=== PATIENT | male | born 1940 | race Two or more races ===

== ENCOUNTER 2017-04-02 17:28 | Inpatient (IN) | payer OTHER ==
[2017-04-01 22:00] VITALS: BP 157/74
[~2017-04-02] VITALS: Ht 172.7 cm; Wt 91.6 kg
[2017-04-02] MEDS ORDERED: SODIUM CHLORIDE 0.9% 1000ML BAG (SEPSIS BOLUS) IV ONE (18:45)
[2017-04-02] MEDS ORDERED: ACETAMINOPHEN 325MG TABLET PO ONE (19:00)
[2017-04-02 19:18] LABS: CLARITY URINE CLOUDY (CLEAR); COLOR URINE YELLOW (YELLOW); GLUCOSE URINE 1+ (NEGATIVE); KETONES URINE NEGATIVE (NEGATIVE); LEUKOCYTE ESTERASE URINE 1+ (NEGATIVE); NITRITE URINE POSITIVE (NEGATIVE); OCCULT BLOOD URINE 1+ (NEGATIVE); PH URINE 5.5 (4.5-8.0); PROTEIN URINE 4+ (NEGATIVE); SPECIFIC GRAVITY URINE 1.025 (1.005-1.030); UROBILINOGEN URINE 0.2 E.U./dL (0.2-1.0)
[2017-04-02] MEDS ORDERED: VANCOMYCIN 1 G PREMIX 200 ML IV ONE (19:30)
[2017-04-02] MEDS ORDERED: PIPERACILLIN/TAZ 3.375G PREMIX 50 ML IV ONE (19:30)
[2017-04-02 19:42] LABS: BASOPHILS % 0.7 % (0.0-2.0); HEMATOCRIT. 38.4 % (42.0-52.0); HEMOGLOBIN. 12.4 g/dL (14.0-18.0); LYMPHOCYTES % 14.8 % (20.0-50.0); MEAN CORPUSCULAR HEMOGLOBIN 26.5 pg (28.0-32.0); MEAN CORPUSCULAR VOLUME 82.2 fL (80.0-94.0); MEAN PLATELET VOLUME 9.5 fl (7.4-10.4); NEUTROPHILS % 76.5 % (40.0-76.0); PLATELET 171 x1000/uL (130-400); RED BLOOD CELL COUNT 4.67 mill/uL (4.7-6.1); RED CELL DISTRIBUTION WIDTH 16.3 % (11.6-14.6)
[2017-04-02 19:43] LABS: CHLORIDE 107 mEq/L (98-107)
[2017-04-02 19:44] LABS: INR 1.8; PROTHROMBIN TIME 19.1 sec (9.4-11.6)
[2017-04-02 19:49] LABS: CARBON DIOXIDE 24 mEq/L (21-32)
[2017-04-02 19:55] LABS: TROPONIN I < 0.02 ng/mL (0.00-0.04)
[2017-04-02 22:00] VITALS: BP 157/70
[2017-04-02 23:00] VITALS: BP 150/74
[2017-04-02] MEDS ORDERED: METF500T4 PO (23:16)
[2017-04-02] MEDS ORDERED: ATOR20TA65 PO (23:16)
[2017-04-02] MEDS ORDERED: GABA100C PO (23:16)
[2017-04-02] MEDS ORDERED: SITA50TA3 PO (23:16)
[2017-04-02] MEDS ORDERED: ASPI-1159 PO (23:16)
[2017-04-02] MEDS ORDERED: TAMS0.4C31 PO (23:16)
[2017-04-02] MEDS ORDERED: INSU3INS6 SUBCUT (23:16)
[2017-04-02] MEDS ORDERED: [UNRECOGNIZED DRUG - CODE] MC (23:16)
[2017-04-02] MEDS ORDERED: WARF2TAB55 PO (23:16)
[2017-04-02] MEDS ORDERED: ENZA40CA PO (23:16)
[2017-04-02] MEDS ORDERED: METO100T9 PO (23:16)
[2017-04-02] MEDS ORDERED: OMEP20CA10 PO (23:16)
[2017-04-02] MEDS ORDERED: DIGO250T4 PO (23:16)
[2017-04-02] MEDS ORDERED: LOSA100T3 PO (23:16)
[2017-04-02] MEDS ORDERED: DEXTROSE 50% WATER 50ML SYRINGE IV PRN (23:30)
[2017-04-03] VITALS (12 sets, daily range): BP systolic 138–162; BP diastolic 67–93
[2017-04-03] MEDS ORDERED: ACETAMINOPHEN 650MG/20.3ML UDC GT PRN (00:15)
[2017-04-03] MEDS ORDERED: ACETAMINOPHEN 650MG SUPP PR PRN (00:15)
[2017-04-03] MEDS ORDERED: IPRATROPIUM/ALBUTEROL 0.5-3(2.5)MG/3ML NEB INH PRN (00:15)
[2017-04-03] MEDS ORDERED: CLONIDINE 0.1MG TABLET PO PRN (00:15)
[2017-04-03] MEDS ORDERED: MAGNESIUM/ALUMINUM HYDROXIDE/SIMETHICONE 30ML UDC PO PRN (00:15)
[2017-04-03] MEDS ORDERED: DIPHENHYDRAMINE 50MG/ML VIAL IV PRN (00:15)
[2017-04-03] MEDS: DIGOXIN 250MCG TABLET PO SCH ×3 (00:15→08:36)
[2017-04-03] MEDS: ATORVASTATIN CALCIUM 20MG TABLET PO SCH ×3 (00:15→21:11)
[2017-04-03] MEDS ORDERED: GUAIFENESIN 200MG/10ML SUGAR FREE UDC PO PRN (00:15)
[2017-04-03] MEDS: LOSARTAN POTASSIUM 100 MG TABLET PO SCH ×3 (00:15→08:36)
[2017-04-03] MEDS: ASPIRIN 81MG EC TABLET PO SCH ×3 (00:15→08:36)
[2017-04-03] MEDS: GABAPENTIN 100MG CAPSULE PO SCH ×5 (00:15→17:24)
[2017-04-03] MEDS ORDERED: HYDROCODONE/ACETAMINOPHEN 5/325MG TABLET PO PRN (00:15)
[2017-04-03] MEDS ORDERED: ONDANSETRON HCL 4MG/2ML VIAL IV PRN (00:15)
[2017-04-03] MEDS ORDERED: WARFARIN SODIUM 2MG TABLET PO SCH ×2 (00:15→18:00)
[2017-04-03] MEDS ORDERED: ACETAMINOPHEN 325MG TABLET PO PRN (00:15)
[2017-04-03] MEDS: TAMSULOSIN HCL 0.4MG SR CAPSULE PO SCH ×3 (00:15→08:35)
[2017-04-03] MEDS ORDERED: DOCUSATE SODIUM 100MG CAPSULE PO PRN (00:15)
[2017-04-03] MEDS ORDERED: NA PHOS,M-B/NA PHOS,DI-BA ENEMA 118ML PR PRN (00:15)
[2017-04-03] MEDS ORDERED: DEXTROSE 50% WATER 50ML SYRINGE IV PRN (00:30)
[2017-04-03] MEDS: WARFARIN SODIUM 2MG TABLET PO SCH ×2 (01:12→01:25)
[2017-04-03] MEDS: LEVOFLOXACIN 500MG PREMIX 100 ML IV SCH (01:12)
[2017-04-03 05:39] LABS: CARBON DIOXIDE 29 mEq/L (21-32); CHLORIDE 110 mEq/L (98-107); CREATINE KINASE 56 IU/L (39-308)
[2017-04-03 05:41] LABS: TROPONIN I 0.02 ng/mL (0.00-0.04)
[2017-04-03] MEDS: SODIUM CHLORIDE 0.9% INJ 3ML FLUSH IVF SCH ×3 (05:46→21:25)
[2017-04-03 06:19] LABS: BASOPHILS % 0.5 % (0.0-2.0); EOSINOPHILS % 0.2 % (0.0-5.0); HEMATOCRIT. 35.8 % (42.0-52.0); HEMOGLOBIN. 11.5 g/dL (14.0-18.0); LYMPHOCYTES % 19.4 % (20.0-50.0); MEAN CORPUSCULAR HEMOGLOBIN 26.7 pg (28.0-32.0); MONOCYTES % 8.6 % (2.0-8.0); NEUTROPHILS % 71.3 % (40.0-76.0); PLATELET 154 x1000/uL (130-400); RED BLOOD CELL COUNT 4.31 mill/uL (4.7-6.1); RED CELL DISTRIBUTION WIDTH 16.6 % (11.6-14.6)
[2017-04-03] MEDS: OMEPRAZOLE 20MG CAPSULE EXTENDED RELEASE PO SCH ×2 (06:42→17:24)
[2017-04-03] MEDS ORDERED: BLOOD SUGAR DIAGNOSTIC STRIP TEST SCH (07:30)
[2017-04-03] MEDS: BLOOD SUGAR DIAGNOSTIC STRIP TEST SCH ×4 (07:35→21:11)
[2017-04-03] MEDS ORDERED: INSULIN LISPRO 100 UNITS/ML SUBCUT SCH (08:00)
[2017-04-03] MEDS: ENOXAPARIN 40MG/0.4ML SYR SUBCUT SCH (08:36)
[2017-04-03] MEDS: METFORMIN HCL 500MG TABLET PO SCH ×2 (08:36→17:24)
[2017-04-03] MEDS: INSULIN LISPRO 100 UNITS/ML SUBCUT SCH ×4 (08:37→21:12)
[2017-04-03 15:55] LABS: CREATINE KINASE 53 IU/L (39-308); TROPONIN I < 0.02 ng/mL (0.00-0.04)
[2017-04-03 18:45] LABS: CLARITY URINE CLEAR (CLEAR); COLOR URINE YELLOW (YELLOW); GLUCOSE URINE 2+ (NEGATIVE); KETONES URINE NEGATIVE (NEGATIVE); LEUKOCYTE ESTERASE URINE TRACE (NEGATIVE); NITRITE URINE NEGATIVE (NEGATIVE); OCCULT BLOOD URINE NEGATIVE (NEGATIVE); PH URINE 5.5 (4.5-8.0); PROTEIN URINE 3+ (NEGATIVE); SPECIFIC GRAVITY URINE 1.021 (1.005-1.030); UROBILINOGEN URINE 0.2 E.U./dL (0.2-1.0)
[2017-04-03 19:09] LABS: *AMPHETAMINES SCREEN URINE NEGATIVE (NEGATIVE); *BARBITURATES SCREEN URINE NEGATIVE (NEGATIVE); *BENZODIAZEPINES SCREEN URINE NEGATIVE (NEGATIVE); *COCAINE SCREEN URINE NEGATIVE (NEGATIVE); CANNABINOID URINE SCREEN NEGATIVE (NEGATIVE); METHADONE URINE SCREEN NEGATIVE (NEGATIVE); OPIATES URINE SCREEN NEGATIVE (NEGATIVE); PHENCYCLIDINE URINE SCREEN NEGATIVE (NEGATIVE)
[2017-04-04] VITALS (9 sets, daily range): BP systolic 122–157; BP diastolic 56–88
[2017-04-04] MEDS: LEVOFLOXACIN 500MG PREMIX 100 ML IV SCH (02:06)
[2017-04-04 05:13] LABS: INR 1.8; PROTHROMBIN TIME 18.5 sec (9.4-11.6)
[2017-04-04 05:18] LABS: BASOPHILS % 0.6 % (0.0-2.0); EOSINOPHILS % 0.5 % (0.0-5.0); HEMATOCRIT. 36.6 % (42.0-52.0); HEMOGLOBIN. 11.6 g/dL (14.0-18.0); LYMPHOCYTES % 24.2 % (20.0-50.0); MEAN CORPUSCULAR HEMOGLOBIN 26.7 pg (28.0-32.0); MEAN CORPUSCULAR VOLUME 84.1 fL (80.0-94.0); MEAN PLATELET VOLUME 10.2 fl (7.4-10.4); MONOCYTES % 10.7 % (2.0-8.0); PLATELET 158 x1000/uL (130-400); RED BLOOD CELL COUNT 4.36 mill/uL (4.7-6.1); RED CELL DISTRIBUTION WIDTH 16.9 % (11.6-14.6)
[2017-04-04 06:17] LABS: CHLORIDE 108 mEq/L (98-107)
[2017-04-04 06:25] LABS: CARBON DIOXIDE 28 mEq/L (21-32); HDL CHOLESTEROL 51 mg/dL (40-59); LDL CHOLESTEROL 71 mg/dL (5-100)
[2017-04-04] MEDS: BLOOD SUGAR DIAGNOSTIC STRIP TEST SCH ×2 (07:49→12:17)
[2017-04-04] MEDS: OMEPRAZOLE 20MG CAPSULE EXTENDED RELEASE PO SCH (08:19)
[2017-04-04] MEDS: INSULIN LISPRO 100 UNITS/ML SUBCUT SCH ×2 (08:20→13:14)
[2017-04-04] MEDS: METFORMIN HCL 500MG TABLET PO SCH (08:20)
[2017-04-04] MEDS: TAMSULOSIN HCL 0.4MG SR CAPSULE PO SCH (09:33)
[2017-04-04] MEDS: ASPIRIN 81MG EC TABLET PO SCH (09:33)
[2017-04-04] MEDS: GABAPENTIN 100MG CAPSULE PO SCH ×2 (09:33→13:14)
[2017-04-04] MEDS: LOSARTAN POTASSIUM 100 MG TABLET PO SCH (09:33)
[2017-04-04] MEDS: DIGOXIN 250MCG TABLET PO SCH (09:33)
[2017-04-04] MEDS: ENOXAPARIN 40MG/0.4ML SYR SUBCUT SCH (09:34)
[2017-04-04] MEDS ORDERED: LIDOCAINE HCL 1% 20ML VIAL (Pyxis) INJ ONE (14:01)
[2017-04-04] MEDS ORDERED: SODIUM BICARBONATE 4% (2.4MEQ) 5ML VIAL IV ONE (14:01)
== END 2017-04-04 17:08 | disposition home health service (06) | DRG 871 ==
LOC: ER 17:51 → 5EST 20:19 → EDBEDREQTM 20:25 → EDBEDREQ 20:25 → ENRESERV 21:06
PROVIDERS: ADMIT Internal Medicine; ATTEND Family Medicine
PROC: 02HV33Z Insertion of Infusion Device into Superior Vena Cava, Percutaneous Approach (ICD-10-PCS; principal; 2017-04-04)
PROC: B548ZZA Ultrasonography of Superior Vena Cava, Guidance (ICD-10-PCS; 2017-04-04)
DX: A41.9 Sepsis, unspecified organism (principal); E43 Unspecified severe protein-calorie malnutrition; G93.41 Metabolic encephalopathy; E11.65 Type 2 diabetes mellitus with hyperglycemia; E86.0 Dehydration; I48.91 Unspecified atrial fibrillation; N39.0 Urinary tract infection, site not specified; D63.8 Anemia in other chronic diseases classified elsewhere; I10 Essential (primary) hypertension; I25.10 Atherosclerotic heart disease of native coronary artery without angina pectoris; T45.515A Adverse effect of anticoagulants, initial encounter; Z79.01 Long term (current) use of anticoagulants; Z87.891 Personal history of nicotine dependence; Z68.30 Body mass index [BMI] 30.0-30.9, adult
CPT/HCPCS: 36415; 36569; 70450; 71010; 76937; 77001; 80048; 80053; 80061; 80305; 81001; 82550; 82962; 83605; 83690; 83880; 84484; 85025; 85610; 87040; 87077; 87086; 87186; 93005; 96361; 96365; 96375; 99291; C1725; J1650; J1815; J1956; J2543; J3370; J3490; J7030; J7050

== ENCOUNTER 2017-04-10 23:44 | Inpatient (IN) | payer OTHER ==
[~2017-04-10] VITALS: Ht 167.6 cm; Wt 93.0 kg
[~2017-04-10 23:44] MED LIST: ASPI-1159 PO; ATOR20TA65 PO; DIGO250T4 PO; ENZA40CA PO; GABA100C PO; INSU3INS6 SUBCUT; LOSA100T3 PO; METF500T4 PO; METO100T9 PO; OMEP20CA10 PO; SITA50TA3 PO; TAMS0.4C31 PO; WARF2TAB55 PO; [UNRECOGNIZED DRUG - CODE] MC
[2017-04-11] MEDS ORDERED: SODIUM CHLORIDE 0.9% 1,000 ML IV ONE (01:21)
[2017-04-11 01:52] LABS: BASOPHILS % 0.7 % (0.0-2.0); HEMATOCRIT. 41.5 % (42.0-52.0); HEMOGLOBIN. 13.3 g/dL (14.0-18.0); LYMPHOCYTES % 15.1 % (20.0-50.0); MEAN CORPUSCULAR HEMOGLOBIN 26.4 pg (28.0-32.0); MEAN CORPUSCULAR VOLUME 82.2 fL (80.0-94.0); MEAN PLATELET VOLUME 9.4 fl (7.4-10.4); MONOCYTES % 8.5 % (2.0-8.0); NEUTROPHILS % 75.7 % (40.0-76.0); PLATELET 261 x1000/uL (130-400); RED BLOOD CELL COUNT 5.05 mill/uL (4.7-6.1); RED CELL DISTRIBUTION WIDTH 16.3 % (11.6-14.6)
[2017-04-11 01:57] LABS: INR 1.8; PROTHROMBIN TIME 18.5 sec (9.4-11.6)
[2017-04-11 02:06] LABS: CARBON DIOXIDE 30 mEq/L (21-32); CHLORIDE 101 mEq/L (98-107); TROPONIN I < 0.02 ng/mL (0.00-0.04)
[2017-04-11 03:36] LABS: CLARITY URINE CLOUDY (CLEAR); COLOR URINE YELLOW (YELLOW); GLUCOSE URINE TRACE (NEGATIVE); KETONES URINE NEGATIVE (NEGATIVE); LEUKOCYTE ESTERASE URINE NEGATIVE (NEGATIVE); NITRITE URINE NEGATIVE (NEGATIVE); OCCULT BLOOD URINE TRACE (NEGATIVE); PH URINE 6.5 (4.5-8.0); PROTEIN URINE 4+ (NEGATIVE); SPECIFIC GRAVITY URINE 1.024 (1.005-1.030)
[2017-04-11 09:00] VITALS: BP 163/77
[2017-04-11 09:44] VITALS: BP 162/82
[2017-04-11] MEDS ORDERED: DEXTROSE 50% WATER 50ML SYRINGE IV PRN (11:00)
[2017-04-11] MEDS ORDERED: CLONIDINE 0.1MG TABLET PO PRN (11:00)
[2017-04-11 12:00] VITALS: BP 173/90
[2017-04-11] MEDS: BLOOD SUGAR DIAGNOSTIC STRIP TEST SCH ×3 (12:28→20:39)
[2017-04-11] MEDS: INSULIN LISPRO 100 UNITS/ML SUBCUT SCH ×3 (12:28→20:35)
[2017-04-11] MEDS: GABAPENTIN 100MG CAPSULE PO SCH (12:57)
[2017-04-11] MEDS: LOSARTAN POTASSIUM 100 MG TABLET PO SCH (12:57)
[2017-04-11] MEDS: LINAGLIPTIN 5MG TABLET PO SCH (12:58)
[2017-04-11] MEDS: TAMSULOSIN HCL 0.4MG SR CAPSULE PO SCH (12:58)
[2017-04-11] MEDS: METOPROLOL TARTRATE 100MG TABLET PO SCH ×2 (12:58→20:32)
[2017-04-11] MEDS: LEVOFLOXACIN 500MG PREMIX 100 ML IV SCH (12:58)
[2017-04-11] MEDS: ASPIRIN 81MG EC TABLET PO SCH (12:58)
[2017-04-11] MEDS: SODIUM CHLORIDE 0.9% 1,000 ML IV SCH (13:02)
[2017-04-11] MEDS: MEROPENEM 500 MG in SODIUM CHLORIDE 0.9% 50 ML IV SCH ×2 (15:16→20:33)
[2017-04-11 16:46] VITALS: BP 144/79
[2017-04-11] MEDS ORDERED: METOPROLOL SUCCINATE 100 MG PO SCH (17:00)
[2017-04-11] MEDS ORDERED: LORAZEPAM 2MG/ML CPJ IV PRN (17:15)
[2017-04-11] MEDS: OMEPRAZOLE 20MG CAPSULE EXTENDED RELEASE PO SCH (17:16)
[2017-04-11] MEDS: DIGOXIN 250MCG TABLET PO SCH (17:51)
[2017-04-11] MEDS ORDERED: WARFARIN SODIUM 4MG TABLET PO SCH (18:00)
[2017-04-11] MEDS ORDERED: WARFARIN SODIUM 2MG TABLET PO SCH (18:00)
[2017-04-11 19:43] VITALS: BP 193/91
[2017-04-11] MEDS: ACETAMINOPHEN 650MG/20.3ML UDC PO PRN (20:05)
[2017-04-11] MEDS: ATORVASTATIN CALCIUM 20MG TABLET PO SCH (20:32)
[2017-04-11] MEDS: INSULIN DETEMIR UD 100 UNITS/ML SYR SUBCUT SCH (22:36)
[2017-04-12] MEDS: SODIUM CHLORIDE 0.9% 1,000 ML IV SCH ×2 (04:04→21:24)
[2017-04-12 06:45] LABS: D-DIMER 1.69 mg/L FEU (<0.50); INR 2.7; PROTHROMBIN TIME 28.1 sec (9.4-11.6)
[2017-04-12 07:03] LABS: BASOPHILS % 0.5 % (0.0-2.0); HEMATOCRIT. 36.4 % (42.0-52.0); HEMOGLOBIN. 11.5 g/dL (14.0-18.0); LYMPHOCYTES % 19.7 % (20.0-50.0); MEAN CORPUSCULAR HEMOGLOBIN 26.4 pg (28.0-32.0); MEAN CORPUSCULAR VOLUME 83.6 fL (80.0-94.0); MEAN PLATELET VOLUME 9.8 fl (7.4-10.4); NEUTROPHILS % 68.8 % (40.0-76.0); PLATELET 225 x1000/uL (130-400); RED BLOOD CELL COUNT 4.36 mill/uL (4.7-6.1); RED CELL DISTRIBUTION WIDTH 16.3 % (11.6-14.6)
[2017-04-12 07:05] VITALS: BP 145/85
[2017-04-12 07:26] LABS: CHLORIDE 107 mEq/L (98-107)
[2017-04-12] MEDS: OMEPRAZOLE 20MG CAPSULE EXTENDED RELEASE PO SCH ×2 (07:28→17:27)
[2017-04-12] MEDS: MEROPENEM 500 MG in SODIUM CHLORIDE 0.9% 50 ML IV SCH ×3 (07:28→21:44)
[2017-04-12] MEDS: BLOOD SUGAR DIAGNOSTIC STRIP TEST SCH ×4 (07:30→20:58)
[2017-04-12 07:43] LABS: CARBON DIOXIDE 28 mEq/L (21-32); HDL CHOLESTEROL 45 mg/dL (40-59); LDL CHOLESTEROL 48 mg/dL (5-100); TROPONIN I < 0.02 ng/mL (0.00-0.04)
[2017-04-12] MEDS: INSULIN LISPRO 100 UNITS/ML SUBCUT SCH ×4 (07:50→21:00)
[2017-04-12 08:00] VITALS: BP 157/81
[2017-04-12] MEDS: ASPIRIN 81MG EC TABLET PO SCH (08:56)
[2017-04-12] MEDS: LOSARTAN POTASSIUM 100 MG TABLET PO SCH (08:56)
[2017-04-12] MEDS: TAMSULOSIN HCL 0.4MG SR CAPSULE PO SCH (08:56)
[2017-04-12] MEDS: METOPROLOL TARTRATE 100MG TABLET PO SCH ×2 (08:57→20:58)
[2017-04-12] MEDS: GABAPENTIN 100MG CAPSULE PO SCH (08:57)
[2017-04-12] MEDS: LINAGLIPTIN 5MG TABLET PO SCH (08:58)
[2017-04-12] MEDS ORDERED: MEDICATION NOT ON FORMULARY EA (Sitagliptin Phosphate (Januvia) 50 MG) PO SCH (09:00)
[2017-04-12 12:00] VITALS: BP 152/84
[2017-04-12] MEDS: LEVOFLOXACIN 500MG PREMIX 100 ML IV SCH (12:06)
[2017-04-12 16:00] VITALS: BP 137/66
[2017-04-12] MEDS: DIGOXIN 250MCG TABLET PO SCH (17:27)
[2017-04-12 18:36] LABS: VITAMIN B12 SERUM 275 pg/mL (211-911)
[2017-04-12 20:00] VITALS: BP 170/82
[2017-04-12] MEDS: ATORVASTATIN CALCIUM 20MG TABLET PO SCH (20:58)
[2017-04-12] MEDS: INSULIN DETEMIR UD 100 UNITS/ML SYR SUBCUT SCH (22:00)
[2017-04-13] VITALS: BP 156/85
[2017-04-13 04:00] VITALS: BP 113/80
[2017-04-13 06:21] LABS: BASOPHILS % 0.3 % (0.0-2.0); EOSINOPHILS % 0.1 % (0.0-5.0); HEMATOCRIT. 35.7 % (42.0-52.0); HEMOGLOBIN. 11.3 g/dL (14.0-18.0); LYMPHOCYTES % 18.6 % (20.0-50.0); MEAN CORPUSCULAR HEMOGLOBIN 26.5 pg (28.0-32.0); MEAN CORPUSCULAR VOLUME 83.4 fL (80.0-94.0); MEAN PLATELET VOLUME 9.6 fl (7.4-10.4); MONOCYTES % 7.7 % (2.0-8.0); NEUTROPHILS % 73.3 % (40.0-76.0); PLATELET 262 x1000/uL (130-400); RED BLOOD CELL COUNT 4.28 mill/uL (4.7-6.1); RED CELL DISTRIBUTION WIDTH 16.1 % (11.6-14.6)
[2017-04-13 06:29] LABS: PROTHROMBIN TIME 45.4 sec (9.4-11.6)
[2017-04-13] MEDS: MEROPENEM 500 MG in SODIUM CHLORIDE 0.9% 50 ML IV SCH ×3 (06:34→22:09)
[2017-04-13] MEDS: ACETAMINOPHEN 650MG/20.3ML UDC PO PRN (06:34)
[2017-04-13] MEDS: OMEPRAZOLE 20MG CAPSULE EXTENDED RELEASE PO SCH ×2 (06:34→18:24)
[2017-04-13] MEDS: BLOOD SUGAR DIAGNOSTIC STRIP TEST SCH ×4 (06:35→21:12)
[2017-04-13 07:13] LABS: CARBON DIOXIDE 27 mEq/L (21-32); CHLORIDE 106 mEq/L (98-107); TROPONIN I < 0.02 ng/mL (0.00-0.04)
[2017-04-13] MEDS: INSULIN LISPRO 100 UNITS/ML SUBCUT SCH ×4 (07:50→21:00)
[2017-04-13 07:52] LABS: INR 4.3
[2017-04-13 08:00] VITALS: BP 168/78
[2017-04-13] MEDS: GABAPENTIN 100MG CAPSULE PO SCH (09:01)
[2017-04-13] MEDS: ASPIRIN 81MG EC TABLET PO SCH (09:01)
[2017-04-13] MEDS: LINAGLIPTIN 5MG TABLET PO SCH (09:01)
[2017-04-13] MEDS: METOPROLOL TARTRATE 100MG TABLET PO SCH ×2 (09:01→21:12)
[2017-04-13] MEDS: TAMSULOSIN HCL 0.4MG SR CAPSULE PO SCH (09:01)
[2017-04-13] MEDS: LOSARTAN POTASSIUM 100 MG TABLET PO SCH (09:01)
[2017-04-13 12:00] VITALS: BP 130/65
[2017-04-13] MEDS: SODIUM CHLORIDE 0.9% 1,000 ML IV SCH (13:19)
[2017-04-13 16:00] VITALS: BP 126/68
[2017-04-13] MEDS: DIGOXIN 250MCG TABLET PO SCH (18:24)
[2017-04-13 20:00] VITALS: BP 172/90
[2017-04-13] MEDS: ATORVASTATIN CALCIUM 20MG TABLET PO SCH (21:12)
[2017-04-13] MEDS: INSULIN DETEMIR UD 100 UNITS/ML SYR SUBCUT SCH (22:00)
[2017-04-14] VITALS (7 sets, daily range): BP systolic 133–176; BP diastolic 61–99
[2017-04-14 06:26] LABS: INR 2.5; PROTHROMBIN TIME 26.2 sec (9.4-11.6)
[2017-04-14] MEDS: BLOOD SUGAR DIAGNOSTIC STRIP TEST SCH ×4 (06:36→21:37)
[2017-04-14] MEDS: SODIUM CHLORIDE 0.9% 1,000 ML IV SCH (06:36)
[2017-04-14] MEDS: MEROPENEM 500 MG in SODIUM CHLORIDE 0.9% 50 ML IV SCH ×2 (06:36→13:33)
[2017-04-14] MEDS: OMEPRAZOLE 20MG CAPSULE EXTENDED RELEASE PO SCH ×2 (07:32→18:22)
[2017-04-14] MEDS: ACETAMINOPHEN 650MG/20.3ML UDC PO PRN ×2 (07:32→20:02)
[2017-04-14] MEDS: INSULIN LISPRO 100 UNITS/ML SUBCUT SCH ×4 (09:09→21:00)
[2017-04-14] MEDS: ASPIRIN 81MG EC TABLET PO SCH (09:10)
[2017-04-14] MEDS: TAMSULOSIN HCL 0.4MG SR CAPSULE PO SCH (09:11)
[2017-04-14] MEDS: LOSARTAN POTASSIUM 100 MG TABLET PO SCH (09:11)
[2017-04-14] MEDS: LINAGLIPTIN 5MG TABLET PO SCH (09:11)
[2017-04-14] MEDS: METOPROLOL TARTRATE 100MG TABLET PO SCH ×2 (09:11→21:37)
[2017-04-14] MEDS: GABAPENTIN 100MG CAPSULE PO SCH (09:11)
[2017-04-14] MEDS ORDERED: CLONIDINE 0.2MG TABLET PO PRN (11:00)
[2017-04-14] MEDS ORDERED: CLONIDINE 0.1MG TABLET PO PRN (11:15)
[2017-04-14] MEDS: HYDRALAZINE HCL 50MG TABLET PO SCH ×2 (13:17→21:37)
[2017-04-14 14:32] LABS: CLARITY URINE CLEAR (CLEAR); COLOR URINE YELLOW (YELLOW); GLUCOSE URINE TRACE (NEGATIVE); KETONES URINE NEGATIVE (NEGATIVE); LEUKOCYTE ESTERASE URINE NEGATIVE (NEGATIVE); NITRITE URINE NEGATIVE (NEGATIVE); OCCULT BLOOD URINE NEGATIVE (NEGATIVE); PROTEIN URINE 3+ (NEGATIVE)
[2017-04-14] MEDS ORDERED: WARFARIN SODIUM 1MG TABLET PO NR (18:00)
[2017-04-14] MEDS: DIGOXIN 250MCG TABLET PO SCH (18:22)
[2017-04-14] MEDS: ATORVASTATIN CALCIUM 20MG TABLET PO SCH (21:37)
[2017-04-14] MEDS: INSULIN DETEMIR UD 100 UNITS/ML SYR SUBCUT SCH (21:42)
== END 2017-04-14 22:05 | DRG 871 ==
LOC: ER 23:45 → 6WST 04-11 05:58 → EDBEDREQ 04-11 06:26 → ENRESERV 04-11 07:07
PROVIDERS: ADMIT Internal Medicine; ATTEND Internal Medicine
DX: A41.9 Sepsis, unspecified organism (principal); G92 Toxic encephalopathy; E11.42 Type 2 diabetes mellitus with diabetic polyneuropathy; I11.9 Hypertensive heart disease without heart failure; N39.0 Urinary tract infection, site not specified; L97.429 Non-pressure chronic ulcer of left heel and midfoot with unspecified severity; R62.7 Adult failure to thrive; K21.9 Gastro-esophageal reflux disease without esophagitis; E11.621 Type 2 diabetes mellitus with foot ulcer; E78.00 Pure hypercholesterolemia, unspecified; E78.5 Hyperlipidemia, unspecified; I48.2 Chronic atrial fibrillation; N40.0 Benign prostatic hyperplasia without lower urinary tract symptoms; Z79.01 Long term (current) use of anticoagulants; Z79.82 Long term (current) use of aspirin; Z85.46 Personal history of malignant neoplasm of prostate; Z87.440 Personal history of urinary (tract) infections; Z87.891 Personal history of nicotine dependence; Z98.61 Coronary angioplasty status; Z79.899 Other long term (current) drug therapy
CPT/HCPCS: 36415; 70450; 70551; 71010; 80048; 80053; 80061; 80162; 81001; 82607; 82962; 83605; 83735; 83880; 84153; 84443; 84484; 85025; 85379; 85610; 85651; 86140; 87040; 87086; 87106; 93005; 93306; 93970; 96360; 96361; 97162; 99291; A6261; J1815; J1956; J2060; J2185; J7030

== ENCOUNTER 2017-05-04 23:43 | Inpatient (IN) | payer OTHER ==
[~2017-05-04] VITALS: Ht 167.6 cm; Wt 79.4 kg
[~2017-05-04 23:43] MED LIST changes: -ENZA40CA PO; -[UNRECOGNIZED DRUG - CODE] MC
[2017-05-05] MEDS ORDERED: SODIUM CHLORIDE 0.9% 1,000 ML IV ONE (00:06)
[2017-05-05 00:36] LABS: BASOPHILS % 0.4 % (0.0-2.0); EOSINOPHILS % 0.1 % (0.0-5.0); HEMATOCRIT. 37.1 % (42.0-52.0); HEMOGLOBIN. 11.5 g/dL (14.0-18.0); LYMPHOCYTES % 13.5 % (20.0-50.0); MEAN CORPUSCULAR HEMOGLOBIN 26.1 pg (28.0-32.0); MONOCYTES % 9.3 % (2.0-8.0); NEUTROPHILS % 76.7 % (40.0-76.0); PLATELET 318 x1000/uL (130-400); RED BLOOD CELL COUNT 4.41 mill/uL (4.7-6.1); RED CELL DISTRIBUTION WIDTH 16.8 % (11.6-14.6)
[2017-05-05 00:57] LABS: CARBON DIOXIDE 31 mEq/L (21-32); CHLORIDE 104 mEq/L (98-107); ETHANOL BLOOD < 10 mg/dL; TROPONIN I 0.06 ng/mL (0.00-0.04)
[2017-05-05 01:00] LABS: PARTIAL THROMBOPLASTIN TIME 74.2 sec (23.4-31.0)
[2017-05-05 01:08] LABS: PROTHROMBIN TIME > 100.0 sec (9.4-11.6)
[2017-05-05 01:09] LABS: INR > 10.0
[2017-05-05 01:10] LABS: DIGOXIN 2.3 ng/mL (0.9-2.0)
[2017-05-05] MEDS ORDERED: PHYTONADIONE 10MG/ML AMP IM NR (01:15)
[2017-05-05 09:00] VITALS: BP 151/70
[2017-05-05 10:15] VITALS: BP 151/70
[2017-05-05] MEDS ORDERED: GUAIFENESIN 200MG/10ML SUGAR FREE UDC PO PRN (11:00)
[2017-05-05] MEDS ORDERED: DOCUSATE SODIUM 100MG CAPSULE PO PRN (11:00)
[2017-05-05] MEDS ORDERED: ACETAMINOPHEN 325MG TABLET PO PRN (11:00)
[2017-05-05] MEDS ORDERED: ONDANSETRON HCL 4MG/2ML VIAL IV PRN (11:00)
[2017-05-05 12:00] VITALS: BP 157/75
[2017-05-05] MEDS ORDERED: DEXTROSE 50% WATER 50ML SYRINGE IV PRN (12:00)
[2017-05-05] MEDS: BLOOD SUGAR DIAGNOSTIC STRIP TEST SCH ×3 (12:38→20:29)
[2017-05-05] MEDS: INSULIN LISPRO 100 UNITS/ML SUBCUT SCH ×3 (12:48→20:42)
[2017-05-05 16:00] VITALS: BP 160/73
[2017-05-05] MEDS: HYDROCODONE/ACETAMINOPHEN 5/325MG TABLET PO PRN (17:00)
[2017-05-05 20:00] VITALS: BP 164/80
[2017-05-05] MEDS: METOPROLOL TARTRATE 50MG TABLET PO SCH (20:40)
[2017-05-06] VITALS: BP 176/71
[2017-05-06] MEDS: CLONIDINE 0.1MG TABLET PO PRN ×4 (00:20→17:04)
[2017-05-06 04:00] VITALS: BP 190/78
[2017-05-06] MEDS: HYDROCODONE/ACETAMINOPHEN 5/325MG TABLET PO PRN (04:42)
[2017-05-06] MEDS: BLOOD SUGAR DIAGNOSTIC STRIP TEST SCH ×4 (06:06→21:56)
[2017-05-06] MEDS: INSULIN LISPRO 100 UNITS/ML SUBCUT SCH ×4 (06:53→21:00)
[2017-05-06 06:55] LABS: INR 1.4; PROTHROMBIN TIME 14.4 sec (9.4-11.6)
[2017-05-06 07:31] LABS: CLARITY URINE CLEAR (CLEAR); COLOR URINE YELLOW (YELLOW); GLUCOSE URINE NEGATIVE (NEGATIVE); KETONES URINE NEGATIVE (NEGATIVE); LEUKOCYTE ESTERASE URINE 1+ (NEGATIVE); NITRITE URINE NEGATIVE (NEGATIVE); OCCULT BLOOD URINE 1+ (NEGATIVE); PH URINE 5.5 (4.5-8.0); PROTEIN URINE 2+ (NEGATIVE); SPECIFIC GRAVITY URINE 1.021 (1.005-1.030)
[2017-05-06 07:31] LABS: BASOPHILS % 0.6 % (0.0-2.0); EOSINOPHILS % 0.3 % (0.0-5.0); HEMATOCRIT. 34.8 % (42.0-52.0); HEMOGLOBIN. 10.8 g/dL (14.0-18.0); LYMPHOCYTES % 14.1 % (20.0-50.0); MEAN CORPUSCULAR HEMOGLOBIN 26.1 pg (28.0-32.0); MEAN CORPUSCULAR VOLUME 83.8 fL (80.0-94.0); MEAN PLATELET VOLUME 9.5 fl (7.4-10.4); MONOCYTES % 9.4 % (2.0-8.0); NEUTROPHILS % 75.6 % (40.0-76.0); PLATELET 312 x1000/uL (130-400); RED BLOOD CELL COUNT 4.15 mill/uL (4.7-6.1); RED CELL DISTRIBUTION WIDTH 16.6 % (11.6-14.6)
[2017-05-06 07:38] LABS: CARBON DIOXIDE 32 mEq/L (21-32); CHLORIDE 105 mEq/L (98-107); HDL CHOLESTEROL 31 mg/dL (40-59); LDL CHOLESTEROL 62 mg/dL (5-100)
[2017-05-06 07:59] LABS: *AMPHETAMINES SCREEN URINE NEGATIVE (NEGATIVE); *BARBITURATES SCREEN URINE NEGATIVE (NEGATIVE); *BENZODIAZEPINES SCREEN URINE NEGATIVE (NEGATIVE); *COCAINE SCREEN URINE NEGATIVE (NEGATIVE); CANNABINOID URINE SCREEN NEGATIVE (NEGATIVE); METHADONE URINE SCREEN NEGATIVE (NEGATIVE); OPIATES URINE SCREEN PRESUMTIVE POSITIVE (NEGATIVE); PHENCYCLIDINE URINE SCREEN NEGATIVE (NEGATIVE)
[2017-05-06 08:00] VITALS: BP 141/74
[2017-05-06] MEDS: METOPROLOL TARTRATE 50MG TABLET PO SCH ×2 (08:05→21:56)
[2017-05-06 12:00] VITALS: BP 161/60
[2017-05-06] MEDS: OXYCODONE HCL 20MG TABLET SR 12HR PO SCH ×2 (15:32→23:52)
[2017-05-06 16:00] VITALS: BP 163/75
[2017-05-06 20:00] VITALS: BP 138/90
[2017-05-07] VITALS (8 sets, daily range): BP systolic 73–176; BP diastolic 46–95
[2017-05-07] MEDS: INSULIN LISPRO 100 UNITS/ML SUBCUT SCH ×4 (06:49→21:22)
[2017-05-07] MEDS: BLOOD SUGAR DIAGNOSTIC STRIP TEST SCH ×4 (06:49→20:34)
[2017-05-07] MEDS: METOPROLOL TARTRATE 50MG TABLET PO SCH ×2 (08:48→21:09)
[2017-05-07] MEDS: OXYCODONE HCL 20MG TABLET SR 12HR PO SCH ×2 (08:48→21:15)
[2017-05-07] MEDS: CLONIDINE 0.1MG TABLET PO PRN ×2 (12:52→17:52)
[2017-05-07] MEDS: ASPIRIN 81MG EC TABLET PO SCH (12:53)
[2017-05-08] VITALS: BP 155/83
[2017-05-08 04:00] VITALS: BP 165/88
[2017-05-08] MEDS: HYDROCODONE/ACETAMINOPHEN 5/325MG TABLET PO PRN (05:17)
[2017-05-08] MEDS: CLONIDINE 0.1MG TABLET PO PRN ×3 (05:17→16:49)
[2017-05-08 06:49] LABS: INR 1.2; PROTHROMBIN TIME 12.4 sec (9.4-11.6)
[2017-05-08 06:51] LABS: BASOPHILS % 0.7 % (0.0-2.0); EOSINOPHILS % 0.9 % (0.0-5.0); HEMATOCRIT. 34.7 % (42.0-52.0); LYMPHOCYTES % 19.4 % (20.0-50.0); MEAN CORPUSCULAR HEMOGLOBIN 26.4 pg (28.0-32.0); MEAN CORPUSCULAR VOLUME 83.5 fL (80.0-94.0); MEAN PLATELET VOLUME 9.3 fl (7.4-10.4); MONOCYTES % 9.2 % (2.0-8.0); NEUTROPHILS % 69.8 % (40.0-76.0); PLATELET 277 x1000/uL (130-400); RED BLOOD CELL COUNT 4.15 mill/uL (4.7-6.1); RED CELL DISTRIBUTION WIDTH 16.5 % (11.6-14.6)
[2017-05-08] MEDS: BLOOD SUGAR DIAGNOSTIC STRIP TEST SCH ×2 (07:07→11:00)
[2017-05-08] MEDS: INSULIN LISPRO 100 UNITS/ML SUBCUT SCH ×2 (07:12→11:43)
[2017-05-08 07:36] LABS: CARBON DIOXIDE 34 mEq/L (21-32); CHLORIDE 107 mEq/L (98-107)
[2017-05-08 08:00] VITALS: BP 171/80
[2017-05-08] MEDS: ASPIRIN 81MG EC TABLET PO SCH (08:11)
[2017-05-08] MEDS: METOPROLOL TARTRATE 50MG TABLET PO SCH (08:11)
[2017-05-08] MEDS: OXYCODONE HCL 20MG TABLET SR 12HR PO SCH (08:11)
[2017-05-08 11:58] VITALS: BP 151/82
[2017-05-08 14:55] VITALS: BP 150/78
[2017-05-08 16:00] VITALS: BP 173/73
== END 2017-05-08 19:17 | disposition hospice, inpatient (51) | DRG 70 ==
LOC: ER 23:56 → 5WST 05-05 01:09 → ENRESERV 05-05 07:15 → UNDOADMIN 05-05 09:25 → 5WST 05-05 09:25
PROVIDERS: ADMIT Internal Medicine; ATTEND Internal Medicine
DX: G93.40 Encephalopathy, unspecified (principal); E43 Unspecified severe protein-calorie malnutrition; D68.9 Coagulation defect, unspecified; E11.42 Type 2 diabetes mellitus with diabetic polyneuropathy; I48.2 Chronic atrial fibrillation; I11.9 Hypertensive heart disease without heart failure; K21.9 Gastro-esophageal reflux disease without esophagitis; T46.0X5A Adverse effect of cardiac-stimulant glycosides and drugs of similar action, initial encounter; E78.00 Pure hypercholesterolemia, unspecified; T45.515A Adverse effect of anticoagulants, initial encounter; E78.5 Hyperlipidemia, unspecified; I25.10 Atherosclerotic heart disease of native coronary artery without angina pectoris; Z79.01 Long term (current) use of anticoagulants; Z79.4 Long term (current) use of insulin; Z79.899 Other long term (current) drug therapy; Z85.46 Personal history of malignant neoplasm of prostate; Z87.440 Personal history of urinary (tract) infections; Z87.891 Personal history of nicotine dependence; Z98.61 Coronary angioplasty status
CPT/HCPCS: 36415; 70450; 71010; 80048; 80053; 80061; 80162; 80305; 81001; 82962; 83605; 83735; 83880; 84443; 84484; 85025; 85610; 85730; 87040; 87086; 92610; 93005; 93306; 93970; 99285; A6261; G0482; J1815; J3430; J7030